=== PATIENT | female | born 1985 | race Caucasian/White ===

== ENCOUNTER 2016-07-08 05:45 | Day surgery (SDC) | payer OTHER ==
[2016-07-01 12:04] LABS: HEMATOCRIT 44.9 % (36.0-47.0); HEMOGLOBIN 15.3 g/dL (12.0-15.5); MEAN CORPUSCULAR HEMOGLOBIN 30.9 pg (27.0-33.4); MEAN CORPUSCULAR HGB CONC 34.1 g/dL (32.0-36.0); MEAN CORPUSCULAR VOLUME 91 fl (80-97); RED BLOOD COUNT 4.95 10^6/uL (3.72-5.28); RED CELL DISTRIBUTION WIDTH 12.5 % (11.5-14.0); WHITE BLOOD COUNT 7.8 10^3/uL (4.0-10.5)
[~2016-07-08 05:45] MED LIST: ACETAMINOPHEN 325 MG TABLET PO PRN; CEFAZOLIN SODIUM 1 GM in DEXTROSE 5%-WATER 50 ML IV PRN; LACTATED RINGERS 1000 ML IV PRN; LIDOCAINE 0.5% INJ-PF (5 MG/ML) 50 ML SDV SUBCUT PRN; RINGERS SOLUTION,LACTATED 1,000 ML IV PRN
[2016-07-08] MEDS ORDERED: BUPIVACAINE HCL 0.25 % INJ/PF (2.5 MG/1 ML) 30 ML VIAL ONE (06:45)
[2016-07-08] MEDS ORDERED: MIDAZOLAM 2 MG/2 ML INJ ONE (08:08)
[2016-07-08] MEDS ORDERED: FENTANYL CITRATE INJ/PF 250 MCG/5 ML AMPULE ONE (08:08)
[2016-07-08] MEDS ORDERED: PROPOFOL INJ 200 MG/20 ML VIAL IV ONE (08:08)
[2016-07-08] MEDS ORDERED: MORPHINE SULFATE 10 MG/ML INJ ONE (08:09)
[2016-07-08] MEDS ORDERED: MEPERIDINE HCL/PF INJ 25 MG/1 ML DISP.SYRIN IV PRN (09:39)
[2016-07-08] MEDS ORDERED: PROMETHAZINE HCL INJ 25 MG/1 ML VIAL IV PRN ×2 (09:39)
[2016-07-08] MEDS ORDERED: MORPHINE SULFATE 10 MG/ML INJ IV PRN (09:39)
[2016-07-08] MEDS ORDERED: OXYCODONE-ACETAMINOPHEN 5-325 MG TABLET PO PRN ×3 (09:39→10:09)
[2016-07-08] MEDS ORDERED: FENTANYL CITRATE INJ/PF 100 MCG/2 ML AMPUL IV PRN ×3 (09:39)
[2016-07-08] MEDS ORDERED: DIPHENHYDRAMINE HCL 50 MG/ML VIAL IV PRN (09:39)
[2016-07-08] MEDS ORDERED: ACETAMINOPHEN 100 ML IV ONE (09:51)
--- NOTE | 2016-07-08 10:06 | Operative Report ---
Operative Report DATE OF SURGERY: 07/08/16 PREOPERATIVE DIAGNOSIS: Umbilical hernia POSTOPERATIVE DIAGNOSIS: Umbilical hernia OPERATION: Umbilical hernia repair SURGEON: SHALINI DIXON 1ST FINISHER ACCORDION: ZAC SUE ANESTHESIA: GA TISSUE REMOVED OR ALTERED: Attenuated fascia excised but not submitted to pathology. COMPLICATIONS: None ESTIMATED BLOOD LOSS: minimal INTRAOPERATIVE FINDINGS: Half centimeter umbilical hernia. PROCEDURE: Informed consent was obtained. Patient was brought to the operating room and placed on the operating table in supine position. After saturation induction of general anesthesia patient's abdomen was prepped and draped in usual sterile fashion. Local anesthetic was injected. A semicircular periumbilical infraumbilical incision was made dissection was carried down. The bellybutton was dissected off of the underlying umbilical hernia. Dissection revealed a small umbilical hernia measuring about half a centimeter in size. About a 2 mm rim of very attenuated fascia was excised. Primary repair was performed without mesh using interrupted Ethibond sutures. Hemostasis appeared excellent. The bellybutton was tacked to the underlying fascia using interrupted Vicryl sutures. Skin was closed with the interrupted the dermal Vicryl sutures with overlying Steri-Strips. Patient tolerated procedure well with no apparent competitions and was taken to the recovery area in stable condition.
[2016-07-08] MEDS ORDERED: ONDANSETRON HCL INJ/PF 4 MG/2 ML SDV IV PRN (10:09)
[2016-07-08] MEDS ORDERED: RINGERS SOLUTION,LACTATED 1,000 ML IV PRN (10:09)
--- NOTE | 2016-07-08 10:09 | PDOC DISCHARGE SUMMARY ---
Discharge Summary (SDC) - Discharge Final Diagnosis: Umbilical hernia Date of Surgery: 07/08/16 Discharge Date: 07/08/16 Condition: Good Treatment or Instructions: Umbilical hernia repair. May discharge patient home when met discharge criteria. Follow-up with me in 2 weeks. Stay active but avoid strenuous activity. May shower tomorrow night. Keep Steri-Strips on. Prescriptions: Oxycodone HCl/Acetaminophen [Percocet 5-325 mg Tablet] 1 tab PO ASDIR PRN #25 tablet PRN Reason: Discharge Diet: As Tolerated Discharge Activity: Activity As Tolerated - Stay active but avoid strenuous activity. Report the Following to Your Physician Immediately: Fever over 101 Degrees, Redness, Drainage-Foul Smelling, Large Clots
[2016-07-08] MEDS ORDERED: GLYCOPYRROLATE INJ 0.4 MG/2 ML VIAL ONE (11:01)
[2016-07-08] MEDS ORDERED: SUCCINYLCHOLINE CHLORIDE INJ 200 MG/10 ML VIAL ONE (11:01)
[2016-07-08] MEDS ORDERED: DEXAMETHASONE SOD PHOSPHATE INJ 4 MG/1 ML VIAL ONE (11:01)
[2016-07-08] MEDS ORDERED: NEOSTIGMINE METHYLSULFATE 10 MG/10 ML VIAL ONE (11:01)
[2016-07-08] MEDS ORDERED: ROCURONIUM BROMIDE INJ 50 MG/5 ML VIAL IV ONE (11:01)
[2016-07-08] MEDS ORDERED: METOCLOPRAMIDE HCL INJ/PF 10 MG/2 ML SDV ONE (11:01)
[2016-07-08] MEDS ORDERED: LIDOCAINE 2% INJ-PF (20 MG/ML) 10 ML AMPUL ONE (11:01)
[2016-07-08] MEDS ORDERED: ONDANSETRON HCL INJ/PF 4 MG/2 ML SDV ONE (11:01)
[2016-07-08 12:47] VITALS: BP 98/57
== END 2016-07-08 12:00 | disposition home or self-care (01) ==
LOC: OROUT 05:45
PROVIDERS: ATTEND Surgery
PROC: 0WQF0ZZ Repair Abdominal Wall, Open Approach (ICD-10-PCS; principal; 2016-07-08 08:00)
DX: K42.9 Umbilical hernia without obstruction or gangrene (principal); R51 Headache; J45.990 Exercise induced bronchospasm; Z88.2 Allergy status to sulfonamides; Z79.51 Long term (current) use of inhaled steroids; Z88.1 Allergy status to other antibiotic agents
CPT/HCPCS: 36415; 85027; 81025; 49585; J2250; J0690; J3490 ×2; J1100; J3010; J2765; J2270; J0330; J2405; J2704; J0131; 830